=== PATIENT | male | born 1990 | race Caucasian/White ===

== ENCOUNTER → 2016-10-17 | Outpatient (CLI) | payer OTHER | END | disposition home or self-care (01) | LOC: GMAL 16:58 | PROVIDERS: ATTEND Family Medicine | DX: D51.3 Other dietary vitamin B12 deficiency anemia (principal); D53.9 Nutritional anemia, unspecified; E55.9 Vitamin D deficiency, unspecified ==

== ENCOUNTER → 2018-03-20 | Outpatient (CLI) | payer BC | LOC: GMAL 17:19 | PROVIDERS: ATTEND Family Medicine | DX: M25.561 Pain in right knee (principal) ==